=== PATIENT | female | born 1945 | race Caucasian/White ===

== ENCOUNTER → 2016-10-24 | Outpatient (CLI) | payer OTHER ==
[~2016-10-24] MED LIST: CLINDAMYCIN HC300 MG PO; DUREZOL OD; HYDROCODONE-A1 UDTA3 PO; MOXIFLOXACIN H400 MG PO; SYNTHROID125 PO
--- NOTE | ~2016-10-24 | US85 ---
[facility] A Service of [facility] RADIOLOGY TEXT RESULTS PATIENT: FILIPPO MUHAMMAD LOCATION: SNIV : 47 UNIT #: [id number] AGE: [address]: Shelia Wu MD SEX: F ORDER DR: [id number] [address] [address] [id number] O MR#: [id number] Acc #: [id number] NAME: FILIPPO MUHAMMAD. : 1945 SEX: F STUDY DATE/TIME: 10/24/2016 11:12 UNIT: SNIV ROOM: STUDY DESCRIPTION: [facility] Attending Physician: Shelia Wu M.D. Referring Physician: Shelia Wu M.D. Ordering Physician: Shelia Wu M.D. Primary Care Physician: Arin Saavedra Aprn MEDICAL IMAGING REPORT This report is preliminary unless electronic signature is present. EXAM Left lower extremity venous duplex 10/24/2016 HISTORY Left lower extremity pain and edema for 1 week after a vacation 1 week ago. Evaluate for deep vein thrombosis. TECHNIQUE Venous ultrasound examination of the left lower extremity was performed using grayscale, spectral Doppler and color flow Doppler imaging. FINDINGS The examination is negative. There is no evidence of left lower extremity deep venous thrombus from the groin to the lower calf. Visualized greater saphenous vein is also patent. IMPRESSION Negative examination. No evidence of left lower extremity deep venous thrombosis. Dictated by... Bradley Copeland M.D. THIS IS AN ELECTRONICALLY VERIFIED REPORT Bradley Copeland M.D. at 10/25/2016 8:27 AM SHARI/yaima TD: 10/24/2016 15:42 JOB #: [id number] MEDICAL IMAGING REPORT [facility] A Service of [facility] RADIOLOGY TEXT RESULTS PATIENT: FILIPPO MUHAMMAD LOCATION: SNIV : 47 UNIT #: [id number] AGE: [address]: Shelia Wu MD SEX: F ORDER DR: Page 1 of 1
== END | disposition home or self-care (01) ==
LOC: SNIV 10:35
DX: R60.0 Localized edema (principal)
CPT/HCPCS: 93971